=== PATIENT | female | born 1945 | race Caucasian/White ===

== ENCOUNTER 2024-03-27 06:50 | Emergency (ER) | payer OTHER ==
[~2024-03-27] VITALS: Ht 162.6 cm; Wt 76.6 kg
[2024-03-27 07:30] VITALS: BP 152/92; PULSE 91; RESP 91; TEMP 97.7; O2SAT 96
[2024-03-27] MEDS: ACETAMINOPHEN 500 MG TAB PO ONE (07:55)
[2024-03-27] MEDS: LIDOCAINE 1% HCL (LOCAL ANESTH.) INJ 20ML MDV ONE (07:55)
[2024-03-27] MEDS: LIDOCAINE 1% HCL (LOCAL ANESTH.) INJ 20ML MDV IJ ONE (07:56)
[2024-03-27] MEDS ORDERED: CEPH500T PO (08:55)
== END 2024-03-27 09:04 | disposition home or self-care (01) ==
LOC: ER 06:50
DX: S61.412A Laceration without foreign body of left hand, initial encounter (principal); S00.03XA Contusion of scalp, initial encounter; S00.31XA Abrasion of nose, initial encounter; Z88.8 Allergy status to other drugs, medicaments and biological substances; W01.198A Fall on same level from slipping, tripping and stumbling with subsequent striking against other object, initial encounter; Y93.89 Activity, other specified; Y92.89 Other specified places as the place of occurrence of the external cause; Y99.8 Other external cause status
CPT/HCPCS: 12002; 70450; 70486; 73130; 99284; J2001